=== PATIENT | male | born 1960 | race Caucasian/White ===

== ENCOUNTER 2020-01-29 08:56 | Emergency (ER) | payer OTHER ==
[~2020-01-29] VITALS: Ht 182.9 cm; Wt 90.7 kg
[2020-01-29] MEDS ORDERED: XARELTO20 MG PO (10:37)
[2020-01-29] MEDS ORDERED: XARELTO15 MG PO (10:37)
[2020-01-29] MEDS ORDERED: NORCO 5-325 TA1 EAC2 PO (11:03)
[2020-01-29 11:06] VITALS: BP 129/88
== END 2020-01-29 11:19 | disposition home or self-care (01) ==
LOC: M.ERS 08:56
DX: I82.432 Acute embolism and thrombosis of left popliteal vein (principal)